=== PATIENT | male | born 1935 | race Caucasian/White ===

== ENCOUNTER → 2017-10-02 | Day surgery (SDC) | payer MEDICARE, BC ==
[~2017-10-02] MED LIST: METOPROLOL TARTRATE 25 MG TAB PO; SODIUM CHLORID 0.9% 500 ML IV
[2017-10-02] MEDS: CHLORHEXIDINE GLUCONATE 2 % 1 PACK (2 CLOTHS) TOPICAL (09:22)
[2017-10-02] MEDS: LACTATED RINGER'S 1000 ML IV (10:02)
[2017-10-02] MEDS: POVIDONE IODINE 5% (ANTISEPSIS KIT) 4 APPLICATIONS EACH NARE (10:07)
[2017-10-02 10:15] LABS: HEMATOCRIT 43.9 % (39.0-51.0); HEMOGLOBIN 13.8 GM/DL (13.0-17.0); MEAN CELL VOLUME 97.8 FL (80.0-100.0); MEAN CORPUSCULAR HEMOGLOBIN 30.7 PG (27.0-34.0); MEAN CORPUSCULAR HGB CONC 31.4 % (32.0-36.0); MEAN PLATELET VOLUME 7.6 FL (7.0-11.0); PLATELET COUNT 204 TH/MM3 (150-450); RED BLOOD COUNT 4.49 MIL/MM3 (4.50-5.90); RED CELL DISTRIBUTION WIDTH 13.1 % (11.6-17.2); REVIEW FLAG FINAL
[2017-10-02] MEDS: ceFAZolin 1,000 MG/NS 100 ML IV (11:01)
[2017-10-02] MEDS: LIDOCAINE 1%/EPINEPHrine 1:100,000 SOLN 30 ML VIAL (11:20)
[2017-10-02] MEDS: BACITRACIN TOP OINT 15 GM TUBE (12:15)
== END | disposition home or self-care (01) ==
LOC: PHSDC 08:57
DX: R22.32 Localized swelling, mass and lump, left upper limb (principal); I10 Essential (primary) hypertension
CPT/HCPCS: 01840; 85027; 88300; 88305; 93005